=== PATIENT | female | born 1990 | race American Indian/Alaskan Native ===

== ENCOUNTER 2017-04-14 20:27 | Emergency (ER) | payer OTHER ==
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
[2017-04-15] MEDS ORDERED: MOTRIN PO ONE (00:09)
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
[2017-04-15 04:34] VITALS: BP 120/82
== END 2017-04-15 02:24 | disposition home or self-care (01) ==
LOC: ED 20:27
DX: S13.4XXA Sprain of ligaments of cervical spine, initial encounter (principal); S39.012A Strain of muscle, fascia and tendon of lower back, initial encounter; Z91.013 Allergy to seafood; Z91.010 Allergy to peanuts; V79.40XA Driver of bus injured in collision with unspecified motor vehicles in traffic accident, initial encounter; Y93.89 Activity, other specified; Y92.89 Other specified places as the place of occurrence of the external cause; Y99.8 Other external cause status
CPT/HCPCS: 72040; 99283